=== PATIENT | male | born 1965 | race Caucasian/White ===

== ENCOUNTER 2021-05-19 11:51 | Outpatient (CLI) | payer BC, SELFPAY ==
[2021-05-19 12:38] LABS: Alanine Aminotransferase 19 U/L (4-50); Albumin Level 4.4 g/dL (3.5-5.1); Alkaline Phosphatase 68 U/L (38-126); Anion Gap 5 mmol/L (8-16); Aspartate Amino Transferase 22 U/L (17-59); Bilirubin,Total 0.4 mg/dL (0.2-1.3); Blood Urea Nitrogen 8 mg/dL (9-20); Calcium 8.7 mg/dL (8.4-10.2); Carbon Dioxide 28 mmol/L (22-30); Chloride 98 mmol/L (98-107); Cholesterol 173 mg/dL (0-200); Estimated Glomerular Filt Rate > 60; Glucose 94 mg/dL (65-110); HDL Direct 69 mg/dL; Sodium 131 mmol/L (137-145); Triglycerides 162 mg/dL (<150)
[2021-05-19 12:39] LABS: Rheumatoid Factor < 8.6 IU/ML (<12)
[2021-05-19 12:49] LABS: LDL Cholesterol Direct 85 mg/dL
[2021-05-19 13:07] LABS: Prostate Specific Antigen 0.6 ng/mL (< OR = 4.0)
== END 2021-05-19 11:52 | disposition home or self-care (01) ==
LOC: ANHLAB 11:56
PROVIDERS: PCP Emergency Medicine; Visit Provider Emergency Medicine
DX: Z13.220 Encounter for screening for lipoid disorders (principal); M25.50 Pain in unspecified joint; Z13.6 Encounter for screening for cardiovascular disorders; Z12.5 Encounter for screening for malignant neoplasm of prostate
CPT/HCPCS: 36415; 80053; 80061; 84153; 86430; G0103

== ENCOUNTER 2021-10-11 13:43 | Outpatient (CLI) | payer BC, SELFPAY ==
--- NOTE | ~2021-10-11 | XR_ITS ---
EXAMINATION: XR foot LT standing 2V DATE: 10/11/2021 14:17 INDICATION: Unspecified osteoarthritis, unspecified site. TECHNIQUE: 2 views of left foot standing were obtained. COMPARISON: None. FINDINGS: Bone alignment is normal. No fracture. There is mild osteoarthritis of first and second met atarsophalangeal joints and second proximal and distal interphalangeal joints. There is an enthesophy te at plantar aspect of calcaneal tuberosity. IMPRESSION: 1. Mild polyarticular osteoarthritis. Reviewed, dictated and finalized at location D.
--- NOTE | ~2021-10-11 | XR_ITS ---
EXAMINATION: XR hand BI arthritis min 3V DATE: 10/11/2021 14:17 INDICATION: Unspecified osteoarthritis, unspecified site. TECHNIQUE: 4 views of right hand and 4 views of left hand on a total of 7 radiographs were obtained. COMPARISON: None. FINDINGS: RIGHT HAND: Bone alignment is normal. No fracture. There is degenerative cystic change in proximal shayy leanna. There is mild osteoarthritis of triscaphe joint. There is severe osteoarthritis of first metaca rpophalangeal joint, moderate osteoarthritis of second-fourth metacarpophalangeal joints, and mild os teoarthritis of fifth metacarpophalangeal joint. There is mild osteoarthritis of most of the interpha langeal joints. LEFT HAND: Bone alignment is normal. No fracture. There is mild osteoarthritis of triscaphe joint and first carpometacarpal joint. There is severe osteoarthritis of first metacarpophalangeal joint, mode rate osteoarthritis of second-fourth metacarpophalangeal joints, and mild osteoarthritis of fifth met acarpophalangeal joint. There is an old healed fracture deformity of fifth proximal phalanx. There is mild osteoarthritis of most of the interphalangeal joints. IMPRESSION: 1. Polyarticular osteoarthritis. Reviewed, dictated and finalized at location D.
--- NOTE | ~2021-10-11 | XR_ITS ---
EXAMINATION: XR foot RT standing 2V DATE: 10/11/2021 14:17 INDICATION: Unspecified osteoarthritis, unspecified site. TECHNIQUE: 2 views of right foot standing were obtained. COMPARISON: None. FINDINGS: Bone alignment is normal. No fracture. There is mild osteoarthritis of second metatarsophal angeal joint, third proximal interphalangeal joint, and first interphalangeal joint. There is an enth esophyte at plantar aspect of calcaneal tuberosity. IMPRESSION: 1. Mild polyarticular osteoarthritis. Reviewed, dictated and finalized at location D.
--- NOTE | ~2021-10-11 | XR_ITS ---
EXAMINATION: XR sacroiliac joints min 3V DATE: 10/11/2021 14:17 INDICATION: Unspecified osteoarthritis, unspecified site. TECHNIQUE: 3 views of the sacroiliac joints were obtained. COMPARISON: None. FINDINGS: Bone alignment is normal. No fracture. Right sacroiliac joint is normal. There is mild oste oarthritis of left sacroiliac joint characterized by a tiny osteophyte. No evidence of inflammatory a rthropathy. IMPRESSION: 1. Mild osteoarthritis of left sacroiliac joint. Reviewed, dictated and finalized at location D.
[2021-10-11 15:14] LABS: Hematocrit 40.4 % (42.0-52.0); Hemoglobin 13.7 g/dL (14.0-18.0); Mean Corpuscular HGB Conc 33.9 g/dl (32-36); Mean Corpuscular Hemoglobin 31.1 pg (26-34); Mean Corpuscular Volume 91.8 fl (80-100); Mean Platelet Volume 10.6 fl (7.4-10.4); Platelet Count Result 179 k/mm3 (150-375); Red Cell Distribution Width 12.4 % (11.5-14.5); White Blood Count 8.3 K/mm3 (4.5-10.0)
[2021-10-11 15:31] LABS: Alanine Aminotransferase 22 U/L (4-50); Albumin Level 3.9 g/dL (3.5-5.1); Alkaline Phosphatase 76 U/L (38-126); Anion Gap 4 mmol/L (8-16); Aspartate Amino Transferase 25 U/L (17-59); Bilirubin,Total 0.3 mg/dL (0.2-1.3); Blood Urea Nitrogen 6 mg/dL (9-20); CRP 8.4 mg/dL (<1.0); Calcium 8.5 mg/dL (8.4-10.2); Carbon Dioxide 31 mmol/L (22-30); Chloride 98 mmol/L (98-107); Estimated Glomerular Filt Rate > 60; Glucose 66 mg/dL (65-110); Potassium 3.8 mmol/L (3.4-5.0); Sodium 133 mmol/L (137-145); Uric Acid 4.6 mg/dL (3.5-8.5)
[2021-10-11 15:46] LABS: Erythrocyte Sedimentation Rate 20 mm/hr (0-20)
[2021-10-11 16:47] LABS: Complement C3 106 mg/dL (88-165); Rheumatoid Factor < 8.6 IU/ML (<12)
[2021-10-13 05:42] LABS: Angiotensin Converting Enzyme 8 U/L (9-67)
[2021-10-13 14:49] LABS: SM Antibody <1.0; SM/RNP Antibody <1.0; SS-A <1.0; SS-B <1.0
[2021-10-14 13:13] LABS: Anti Cyclic Citrullinated Pept <16 Units (<20)
== END 2021-10-11 13:44 | disposition home or self-care (01) ==
PROVIDERS: PCP Emergency Medicine; Visit Provider Internal Medicine
DX: M19.071 Primary osteoarthritis, right ankle and foot (principal); M19.072 Primary osteoarthritis, left ankle and foot; M53.3 Sacrococcygeal disorders, not elsewhere classified; M19.041 Primary osteoarthritis, right hand; M19.042 Primary osteoarthritis, left hand
CPT/HCPCS: 36415; 72202; 73130; 73620; 80053; 82164; 84550; 85027; 85652; 86038; 86140; 86160; 86200; 86225; 86235; 86430

== ENCOUNTER 2021-11-25 15:06 | Emergency (ER) | payer BC, SELFPAY ==
--- NOTE | ~2021-11-25 | XR_ITS ---
XR chest 2V DATE: 11/25/2021 15:48 INDICATION: Shortness of breath, leg swelling. Lungs sound wet. TECHNIQUE: PA and lateral views COMPARISON: 06/08/2019 PA chest FINDINGS: The lungs are hyperinflated suggesting COPD. No pulmonary infiltrate or consolidation, pleu ral effusion or pulmonary vascular congestion or pneumothorax is detected. Heart size is within normal range. There is thoracic aortic calcification and tortuosity. No hilar or mediastinal enlargement. Status post anterior cervical spine surgical fusion. Surgical clips, right upper quadrant of abdomen, likely due to cholecystectomy. IMPRESSION: Bilateral hyperinflation suggesting COPD No active cardiac pulmonary disease Aortic atherosclerosis Status post anterior cervical spine surgical fusion Status post cholecystectomy Reviewed, dictated and finalized at location A.
[2021-11-25 15:15] VITALS: BP 139/91; PULSE 85; RESP 18; TEMP 36.8; O2SAT 97
--- NOTE | 2021-11-25 15:44 | ED.GENADULT ---
HPI - General Adult General Chief complaint: Skin/Abscess/Foreign Body Stated complaint: ankles swollen / rash Time Seen by Provider: 11/25/21 15:38 Source: patient Mode of arrival: ambulatory Limitations: no limitations History of Present Illness HPI narrative: 56-year-old male presents concern for bilateral lower extremity swelling and itching. Reports 1 month ago he had white bumps on both of his legs that were itchy. Reports he scratched them causing scabs and open skin. Reports symptoms persisted and within the last week his legs and feet have become swollen and painful He reports he is using dbyi-irp-hlolmsc medications including Tylenol, Neosporin, hydrocortisone. He denies injury or trauma. Denies history of similar problems. MD complaint: Leg swelling Related Data Home Medications Medication Instructions Recorded Confirmed aripiprazole 5 mg tablet tablet 11/25/21 bupropion HCl 300 mg 24 hr tablet, tablet PO 11/25/21 extended release buspirone 10 mg tablet tablet 11/25/21 gabapentin 800 mg tablet tablet 11/25/21 quetiapine 200 mg tablet tablet 11/25/21 vortioxetine 20 mg tablet tablet 11/25/21 (Trintellix) Allergies Allergy/AdvReac Type Severity Reaction Status Date / Time Sulfa (Sulfonamide Allergy Mild UNKNOWN - Verified 11/25/21 15:21 Antibiotics) SINCE CHILD Review of Systems Review of Systems: CONSTITUTIONAL: Denies malaise, chills, sweats, or fever. CARDIOVASCULAR: Denies chest pain, palpitations. Reports bilateral lower leg and feet edema RESPIRATORY: Denies cough. Reports dyspnea. GASTROINTESTINAL: Denies abdominal pain, nausea, vomiting, diarrhea, bloody, or mucous stools. SKIN: Reports bilateral lower leg itching, redness, scabs MUSCULOSKELETAL: Denies back pain, joint pain, or myalgia. All systems reviewed & are unremarkable except as noted in HPI and below PMFSH Past Medical History Medical History Anxiety Back pain Bilateral hand pain Degenerative joint disease (DJD) of lumbar spine Depression Inflammatory arthritis Overweight (BMI 25.0-29.9) Post traumatic stress disorder Smoker Family History Family History Mother Family history of malignant neoplasm of breast in first degree relative Family history of type 2 diabetes mellitus Family history of rheumatoid arthritis Sibling Family history of malignant neoplasm of breast in first degree relative Social History Social History Smoking packs per day: 1 Smoking cigarettes per day: 20.0 Years smoked: 10 Smoking pack-years: 10.00 Smoking status: Current every day smoker Tobacco type: cigarettes Alcohol intake: never Substance use: never Gender identity (if verbalized by the patient): Male Spiritual care concerns: No Agree to blood products: Yes Comments At time of signature, agree with nursing past medical, surgical, social and family history. There is no relevant family history pertinent to the presenting complaint Exam Narrative: GENERAL: Well-appearing, well-nourished, and in no acute distress. HEAD: Normocephalic, atraumatic. EYES: PERRLA, sclera clear, and EOMI. ENT: Nares clear. Mucous membranes moist. NECK: Supple. CHEST: No respiratory distress. Scattered expiratory wheeze and crackles, otherwise clear to auscultation. No bony deformities, no asymmetry. Speaks in full sentences. HEART: Regular rate and rhythm. No murmur heard. Normal peripheral pulses. EXTREMITIES: Grossly normal range of motion, normal strength and sensation. Bilateral lower leg, ankle, foot 1+ pitting edema. Bilateral lower legs erythematous and warm, tender to touch. Bilateral lower legs have generalized scabs, areas of open skin. No ulcerations noted SKIN: Warm, dry, no visible rash. NEURO: Alert and oriented x3. PSYCH: Normal mood and affect Course Course Emergency Course: Patient is aw
== END 2021-11-25 16:03 | disposition home or self-care (01) ==
PROVIDERS: Emergency Provider Nurse Practitioner; PCP Emergency Medicine
DX: L03.116 Cellulitis of left lower limb (principal); L03.115 Cellulitis of right lower limb; J44.9 Chronic obstructive pulmonary disease, unspecified; F17.210 Nicotine dependence, cigarettes, uncomplicated; F41.9 Anxiety disorder, unspecified; F32.A Depression, unspecified; M13.80 Other specified arthritis, unspecified site; M47.816 Spondylosis without myelopathy or radiculopathy, lumbar region
CPT/HCPCS: 71046; 99213; G0463

== ENCOUNTER 2021-12-16 19:01 | Emergency (ER) | payer BC, SELFPAY ==
[2021-12-16 19:06] VITALS: BP 136/89; PULSE 88; RESP 16; TEMP 37.7; O2SAT 95
--- NOTE | 2021-12-16 19:12 | ED.SKABFB ---
HPI - Skin/Abscess/Foreign Bdy General Chief complaint: Extremity Problem,Nontraumatic Stated complaint: Leg/Hand Swelling Time Seen by Provider: 12/16/21 19:12 Source: patient and RN notes reviewed History of Present Illness HPI narrative: Patient is a 56-year-old male who presents the urgent care with complaints of bilateral lower extremity swelling. Patient states been ongoing for the last 2 months but worse within the last week or so. Patient states that the compression stockings he wears in the evenings and at home do help with the swelling however it has been returning much quicker than normal. Patient states that his physician is aware of the swelling but he has not been there in some months. Patient is also aware of his recent lab work from the global risk management director and everything was negative for RA. Patient denies of any shortness of breath or chest pain. States that he is urinating without difficulty. Denies of any trauma or injury to the bilateral lower extremities. No other acute complaints. No acute distress noted. Patient aware of the plan of care. Some parts of this dictation were generated by voice recognition software and may contain typographical and/or grammatical inaccuracies. Related Data Home Medications Medication Instructions Recorded Confirmed aripiprazole 5 mg tablet tablet 11/25/21 buspirone 10 mg tablet tablet 11/25/21 vortioxetine 20 mg tablet tablet 11/25/21 (Trintellix) bupropion HCl 150 mg 24 hr tablet, 150 mg PO QAM 11/29/21 extended release sildenafil 50 mg tablet 50 mg PO DAILY PRN 11/29/21 Allergies Allergy/AdvReac Type Severity Reaction Status Date / Time Sulfa (Sulfonamide Allergy Mild UNKNOWN - Verified 11/25/21 15:21 Antibiotics) SINCE CHILD Review of Systems Review of Systems: CONSTITUTIONAL: Denies fever, chills, or sweats. EYES: Denies visual changes, redness, or discharge. ENT: Denies rhinorrhea, congestion, sore throat, or otalgia. CARDIOVASCULAR: Denies chest pain, palpitations, or edema. RESPIRATORY: Denies cough or dyspnea. GASTROINTESTINAL: Denies abdominal pain, nausea, vomiting, or diarrhea. GENITOURINARY: Denies dysuria or hematuria. SKIN: Denies rash or itching. MUSCULOSKELETAL: Reports of bilateral lower extremity swelling NEUROLOGIC: Denies headache, numbness, or weakness. All other systems reviewed are negative, except as documented in HPI. [facility] Past Medical History Medical History Anxiety Back pain Bilateral hand pain Degenerative joint disease (DJD) of lumbar spine Depression Inflammatory arthritis Overweight (BMI 25.0-29.9) Post traumatic stress disorder Smoker Family History Family History Mother Family history of malignant neoplasm of breast in first degree relative Family history of type 2 diabetes mellitus Family history of rheumatoid arthritis Sibling Family history of malignant neoplasm of breast in first degree relative Social History Social History Smoking packs per day: 1 Smoking cigarettes per day: 20.0 Years smoked: 10 Smoking pack-years: 10.00 Smoking status: Current every day smoker Tobacco type: cigarettes Alcohol intake: never Substance use: never Gender identity (if verbalized by the patient): Male Spiritual care concerns: No Agree to blood products: Yes Comments At the time of my signature, I reviewed and agree with the nursing past medical, surgical, social, and family history. There is no relevant family history pertinent to the patient complaint. Exam Narrative: GENERAL: This is a well-nourished, well-developed patient, in no apparent distress. HEAD: normocephalic, atraumatic. EYES: PERRL. Sclera clear/white. Vision is grossly intact. EARS: External ears normal NOSE: External nose normal with no obvious nasal discharge, nares without redness, no rhinorrhea. THROAT: Mucous mem
== END 2021-12-16 19:28 | disposition left against medical advice (07) ==
PROVIDERS: Emergency Provider Nurse Practitioner Family
DX: R60.9 Edema, unspecified (principal); F41.9 Anxiety disorder, unspecified; F32.9 Major depressive disorder, single episode, unspecified; F17.210 Nicotine dependence, cigarettes, uncomplicated
CPT/HCPCS: 99213; G0463

== ENCOUNTER 2022-01-11 14:43 | Outpatient (CLI) | payer BC, SELFPAY ==
--- NOTE | ~2022-01-11 | MR_ITS ---
EXAMINATION: MR hand RT wo/w con, MR hand LT wo/w con DATE: 01/11/2022 17:55 INDICATION: Bilateral hand pain TECHNIQUE: 1. Magnetic resonance imaging (MRI) of the left hand was performed without and with 15 mL Multihance intravenous contrast to include the metacarpals and digits. Sequences included sagittal, coronal, and axial T1-weighted FSE and T2-weighted FS FSE, axial T1-weighted FS FSE and postcontrast axial, sagit ayo and coronal T1-weighted FS FSE. 2. MRI of the right hand was performed without and with 15 mL MultiHance intravenous contrast to incl ude the metacarpals and digits utilizing the same contrast bolus. Sequences included sagittal, charles l, and axial T1-weighted FSE and T2-weighted FS FSE, axial T1-weighted FS FSE and postcontrast axial, sagittal and coronal T1-weighted FS FSE. COMPARISON: Bilateral hand radiographs dated 10/11/2021 FINDINGS: There is magnetic medina artifact centered at the ulnar aspect of the right wrist which based on prio r radiographs appears to result from a BB the soft tissues overlying the region of the extensor carpi ulnaris groove. This obscures the ulnar aspect of the proximal right hand. Bone alignment is normal at both hands. No fractures. Polyarticular osteoarthritis of both hands characters by nonuniform join t space narrowing and marginal osteophyte formation. This is severe bilaterally at the first metacarp ophalangeal joints is of moderate severity at the bilateral second-fourth metacarpophalangeal joints. Additional mild osteoarthritis at the radial aspect of the carpus, the bilateral fifth metacarpophal angeal joints and multiple interphalangeal joints. There is enhancing synovitis with associated enhan cing erosions to some degree at each of the metacarpophalangeal joints. At the left hand there is enh ancing synovitis at the triscaphe and first and second carpometacarpal joints. There is mild enhancem ent along the periphery of either degenerative subchondral cysts versus chronic erosions with thin lo w signal intensity sclerotic margins of at the base of the second metacarpal and at the capitate. Sim ilar degenerative subchondral cyst versus erosion suggested at the right capitate on the prior radiog raph but this region is nonvisualized on the current MRI due to the magnetic field artifact. Visualiz ed portions of the flexor and extensor tendons are normal as is the intrinsic musculature of the hand s. No joint effusions or other abnormal fluid collections. IMPRESSION: 1. Relatively symmetric moderate to severe polyarticular osteoarthritis at the bilateral metacarpopha langeal joints with associated synovitis and multiple associated enhancing erosions suggesting this c ould represent secondary osteoarthritis with underlying primary inflammatory arthritis such as rheuma toid arthritis, gout or calcium pyrophosphate deposition (CPPD) disease. Reviewed, dictated and finalized at location A. IMPRESSION: 1. Relatively symmetric moderate to severe polyarticular osteoarthritis at the bilateral metacarpophalangeal joints with associated synovitis and multiple ass ociated enhancing erosions suggesting this could represent secondary osteoarthr itis with underlying primary inflammatory arthritis such as rheumatoid arthriti s, gout or calcium pyrophosphate deposition (CPPD) disease.
--- NOTE | 2022-01-11 14:47 | ECHO_ITS ---
Patient Info Name: Christopher Bills Age: 56 years : 1965 Gender: Male Ht: 72 in Wt: 175 lbs BSA: 2.01 m2 HR: 67 bpm BP: 162 / 110 mmHg Heart Rhythm: Sinus Rhythm Technical Quality: Fair Exam Date: 01/11/2022 3:01 PM Exam Location: [facility] Patient Status: Outpatient Admit Date: 01/11/2022 Staff Ordering Physician: Karan Lyons PA-C Visual Journalist: Lesly Way RDCS Attending Provider: Karan Lyons PA-C Referring Physician: Serena RIVERA; Exam Type: CA echo doppler color flow Study Info Indications - B/L LE EDEMA Complete two-dimensional, color flow and Doppler transthoracic echocardiogram is performed. Summary 1. Complete two-dimensional, color flow and Doppler transthoracic echocardiogram is performed. 2. Left ventricular chamber dimension is normal. 3. Left ventricular systolic function is normal, estimated at 60-65%. 4. The left ventricular diastolic function is abnormal. 5. E/e' 12 is mildly elevated. 6. There is trace tricuspid valve regurgitation. 7. No pulmonary hypertension, estimated pulmonary arterial systolic pressure is 21 mmHg. Left Ventricle E/e' 12 is mildly elevated. Left ventricular chamber dimension is normal. Left ventricular systolic function is normal, estimated at 60-65%. The left ventricular diastolic function is abnormal. Right Ventricle Right ventricular systolic function is normal and with normal TAPSE 2.4 cm. Right ventricular chamber dimension is normal. Left Atria Left atrial chamber dimension is normal. Right Atria Right atrial chamber dimension is normal. Aortic Valve The aortic valve is trileaflet. There is no aortic valve stenosis. There is no aortic valve regurgitation. Pulmonic Valve There is no pulmonic regurgitation. Mitral Valve There is no mitral valve stenosis. There is no mitral valve regurgitation. Tricuspid Valve There is trace tricuspid valve regurgitation. No pulmonary hypertension, estimated pulmonary arterial systolic pressure is 21 mmHg. Pericardium/Pleural There is no pericardial effusion. Inferior Vena Cava Normal inferior vena cava with >50% collapse upon inspiration consistent with normal right atrial pressure, 5 mmHg. Aorta The aortic root size at the sinus of Valsalva is normal. Left Ventricular Outflow Tract Name Value Normal LVOT 2D LVOT Diameter 2.2 cm LVOT Doppler LVOT Peak Gradient 4 mmHg LVOT Mean Gradient 2 mmHg LVOT VTI 20 cm LVOT VTI/AV VTI Ratio 0.7 LVOT Stroke Volume 79 ml LVOT CO 4.9 l/min LVOT CI 2.4 l/min/m2 Pulmonic Valve Name Value Normal RVOT Doppler RVOT Peak Gradient 1 mmHg
== END 2022-01-11 14:44 | disposition home or self-care (01) ==
LOC: ANHCARD 14:45
PROVIDERS: PCP Physician Assistant; Visit Provider Physician Assistant
DX: R60.0 Localized edema (principal); M19.90 Unspecified osteoarthritis, unspecified site; M19.041 Primary osteoarthritis, right hand; M19.042 Primary osteoarthritis, left hand
CPT/HCPCS: 73220; 93306; A9577

== ENCOUNTER 2022-04-14 13:55 | Emergency (ER) | payer BC, SELFPAY ==
--- NOTE | ~2022-04-14 | XR_ITS ---
EXAMINATION: XR chest 2V DATE: 04/14/2022 14:42 INDICATION: Shortness of breath. Fever. TECHNIQUE: Frontal and lateral views of the chest were obtained. COMPARISON: Chest 2 views 11/25/2021 FINDINGS: The chest demonstrates clear lungs without pneumonia, pleural effusion, or pneumothorax. Th e heart size is normal. There are changes of anterior fusion procedure in cervical spine. IMPRESSION: 1. No acute cardiopulmonary disease. Reviewed, dictated and finalized at location A.
[2022-04-14 14:03] VITALS: BP 136/82; PULSE 86; RESP 12; TEMP 37.4; O2SAT 95
--- NOTE | 2022-04-14 14:29 | ED.URI ---
HPI - URI/Sore Throat General Chief Complaint: Upper Respiratory Infection Stated Complaint: Cough/Chest Congestion Time Seen by Provider: 04/14/22 14:29 Source: patient and RN notes reviewed Mode of arrival: ambulatory Limitations: no limitations History of Present Illness HPI Narrative: 56-year-old male presents concern with 3 history of general malaise, fatigue, aches, fever, cough. He reports he has been told before he has COPD but he does not use any medications. Reports he is smoker. MD elicited complaint: cough and sore throat Related Data Home Medications Medication Instructions Recorded Confirmed aripiprazole 5 mg tablet 5 tablet PO QPM 11/25/21 04/14/22 Allergies Allergy/AdvReac Type Severity Reaction Status Date / Time Sulfa (Sulfonamide Allergy Mild UNKNOWN - Verified 04/14/22 14:12 Antibiotics) SINCE CHILD Review of Systems Review of Systems: CONSTITUTIONAL: Reports malaise, fatigue, fever. EYES: Denies visual changes, redness, or discharge. ENT: Denies rhinorrhea, congestion, sinus pain, otalgia and sore throat. CARDIOVASCULAR: Denies chest pain, palpitations, or edema. RESPIRATORY: Reports cough. Denies dyspnea. GASTROINTESTINAL: Denies abdominal pain, nausea, vomiting, diarrhea SKIN: Denies rash or itching. MUSCULOSKELETAL: Reports myalgia. NEUROLOGIC: Reports headache. All systems reviewed & are unremarkable except as noted in HPI and below PMFSH Past Medical History Medical History Anxiety Back pain Bilateral hand pain Degenerative joint disease (DJD) of lumbar spine Depression Inflammatory arthritis Overweight (BMI 25.0-29.9) Post traumatic stress disorder Smoker Family History Family History Mother Family history of malignant neoplasm of breast in first degree relative Family history of type 2 diabetes mellitus Family history of rheumatoid arthritis Sibling Family history of malignant neoplasm of breast in first degree relative Social History Social History Smoking packs per day: 1 Smoking cigarettes per day: 20.0 Years smoked: 10 Smoking pack-years: 10.00 Smoking status: Current every day smoker Tobacco type: cigarettes Alcohol intake: never Substance use: never Gender identity (if verbalized by the patient): Male Spiritual care concerns: No Agree to blood products: Yes Comments At time of signature, agree with nursing past medical, surgical, social and family history. There is no relevant family history pertinent to the presenting complaint Exam Narrative: GENERAL: Nontoxic-appearing and in no acute distress. HEAD: Normocephalic EYES: PERRLA, conjunctivae clear ENT: Nares clear, clear discharge. Mucous membranes moist. TM pearly rich with dull light reflex bilaterally; no tragal tenderness. Oropharynx not erythematous without lesions. Tonsils not enlarged and without exudate, no drooling, no hoarseness, no trismus, uvula midline. NECK: Supple. No lymphadenopathy CHEST: Inspiratory and expiratory wheeze, aeration good, scattered rhonchi particularly in right lower lobe. Breath sounds equal. No rales, or stridor. No respiratory distress, speaks in full sentences. HEART: Regular rate and rhythm. No murmur heard. SKIN: Warm, dry, no rash. NEURO: Alert and oriented x3. PSYCH: Normal mood and affect Course Course Emergency Course: Patient is aware of diagnosis, understands and agrees to treatment plan. Anticipatory guidance given. Patient agrees to follow-up as directed and is aware of reasons to seek care at the emergency department. Portions of this record may have been created with voice recognition software Level of Care: Express Care Visit Vital Signs Vital signs: Vital Signs Temperature 99.3 F 04/14/22 14:03 Pulse Rate 86 04/14/22 14:03 Respiratory Rate 12 04/14/22 14:03 Blood Pressure 136/82 04/14/22 14:03
== END 2022-04-14 15:08 | disposition home or self-care (01) ==
PROVIDERS: Emergency Provider Nurse Practitioner; PCP Emergency Medicine
DX: J11.1 Influenza due to unidentified influenza virus with other respiratory manifestations (principal); Z20.822 Contact with and (suspected) exposure to COVID-19; M47.816 Spondylosis without myelopathy or radiculopathy, lumbar region; M13.80 Other specified arthritis, unspecified site; J44.9 Chronic obstructive pulmonary disease, unspecified
CPT/HCPCS: 71046; 87426; 87804; 99213; C9803; G0463

== ENCOUNTER 2022-09-20 11:46 | Outpatient (CLI) | payer BC, SELFPAY ==
[2022-09-20 12:10] LABS: Alanine Aminotransferase 28 U/L (6-50); Albumin Level 4.5 g/dL (3.5-5.1); Alkaline Phosphatase 76 U/L (38-126); Anion Gap 6 mmol/L (8-16); Aspartate Amino Transferase 23 U/L (17-59); Bilirubin,Total 0.6 mg/dL (0.2-1.3); Blood Urea Nitrogen 10 mg/dL (9-20); Calcium 8.2 mg/dL (8.4-10.2); Carbon Dioxide 28 mmol/L (22-30); Chloride 99 mmol/L (98-107); Cholesterol 184 mg/dL (0-200); Estimated Glomerular Filt Rate > 60; Glucose 99 mg/dL (65-110); HDL Direct 68 mg/dL; Potassium 4.7 mmol/L (3.4-5.0); Sodium 133 mmol/L (137-145); Triglycerides 58 mg/dL (<150)
[2022-09-20 12:23] LABS: LDL Cholesterol Direct 94 mg/dL
[2022-09-20 12:41] LABS: Prostate Specific Antigen 0.4 ng/mL (< OR = 4.0)
[2022-09-23 23:57] LABS: Vitamin D 1,25 (OH)2 Total 43 pg/mL (18-72); Vitamin D2 1,25 (OH)2 9 pg/mL; Vitamin D3 1,25 (OH)2 34 pg/mL
== END 2022-09-20 11:47 | disposition home or self-care (01) ==
LOC: ANHLAB 11:48
PROVIDERS: PCP Emergency Medicine; Visit Provider Emergency Medicine
DX: E55.9 Vitamin D deficiency, unspecified (principal); E78.00 Pure hypercholesterolemia, unspecified; Z12.5 Encounter for screening for malignant neoplasm of prostate; R53.83 Other fatigue
CPT/HCPCS: 36415; 80053; 80061; 82652; 84153; 84443; G0103

== ENCOUNTER 2024-02-16 13:15 | Emergency (ER) | payer BC, SELFPAY ==
[2024-02-16 13:27] VITALS: BP 154/96; PULSE 76; RESP 16; TEMP 36.6; O2SAT 96
--- NOTE | 2024-02-16 19:40 | PC.NURSE ---
No answer when called for VS. Was told that midlevel provider, FADY Bah was unable to find patient earlier for MSE. Assume at this time pt LWBS and will chart out.
== END 2024-02-16 19:57 | disposition left against medical advice (07) ==
LOC: ANHED 19:46
PROVIDERS: PCP Emergency Medicine
DX: Z53.21 Procedure and treatment not carried out due to patient leaving prior to being seen by health care provider (principal)
CPT/HCPCS: 99199

== ENCOUNTER 2024-10-23 14:03 | Outpatient (CLI) | payer BC, SELFPAY ==
--- NOTE | ~2024-10-23 | XR_ITS ---
XR abdomen/kub 1V Ordering provider: JESSIKA Montalvo History: . R10.9 - Unspecified abdominal pain . Comparison: None. FINDINGS: BOWEL: Nonobstructive bowel gas pattern. ORGANOMEGALY: None. SIGNIFICANT PATHOLOGIC CALCIFICATIONS: None. OTHER: No free air is seen under the diaphragm. Degenerative the spine. IMPRESSION: NO ACUTE ABDOMINAL FINDINGS. Reviewed, dictated and finalized at location A.
--- OUTSIDE RECORDS SUMMARY | 2024-10-23 14:16 | XMS_ITS | Referral Summary ---
Author Organization [facility] Address [address] [place] [address] Care Team Providers Care Dispatcher Relay Name Role Phone Erick Garcia MD Primary Care Provide r Allergies Active Allergy Reactions Criticality Noted Date Comments Sulfasalazine Anaphylaxis High 05/27/2015 Medications No known medications Active Problems Problem Noted Date Diagnosed Date Opioid withdrawal 03/02/2018 Social History Tobacco Use Types Packs/Day Years Used Date Smoking Tobacco: Every Day Cigarettes Smokeless Tobacco: Never Alcohol Use Standard Drinks/Week Comments No 0 (1 standard drink = 0.6 oz pur e alcohol) Personal Safety Answer Date Recorded Getting School Help Needed Not on file 08/05 Sex and Gender Information Value Date Recorded Sex Assigned at Not on file Legal Sex Male 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 Gender Identity Not on file Sexual Orientation Not on file Last Filed Vital Signs Vital Sign Reading Time Taken Comments Blood Pressure 147/89 01/05/2021 2:00 PM CDT Pulse 77 01/05/2021 2:00 PM CDT Temperature 37.3 C (99.1 F) 01/05/2021 10:46 AM CDT Respiratory Rate 14 01/05/2021 2:00 PM CDT Oxygen Saturation 97% 01/05/2021 2:00 PM CDT Inhaled Oxygen Concentration - - Weight 79.4 kg (175 lb) 01/05/2021 10:46 AM CDT Height 180.3 cm (5' 11 ) 01/05/2021 10:46 AM CDT Body Mass Index 24.41 01/05/2021 10:46 AM CDT Plan of Treatment Not on file Insurance BLUE [facility] [place] BLUE [facility] CHOICE [facility] ACCESS CHOICE Advance Directives For more information, please contact: [phone] * Full Code (Latest Code Status on File) Date Activated Date Inactivated Comments 03/02/2018 11:45 AM 03/05/2018 11:50 AM Care Teams Dispatcher Relay Relationship Specialty Start Date End Date Erick Garcia MD [id number] [place] [address] PCP - General 03/02/18
--- OUTSIDE RECORDS SUMMARY | 2024-10-23 14:16 | XMS_ITS | Clinical Summary ---
Author Organization [facility] Address [address] [address] Phone Care Team Providers Care Toll Operator Name Role Phone Erick Garcia MD Primary Care Provider [phone] Allergies Active Allergy Reactions Criticality Noted Date Comments Sulfa Antibiotics Anaphylaxis 05/27/2015 Medications esomeprazole (NEXIUM) 20 MG CAPSULE DELAYED RELEASE Take 20 mg by mouth daily. Active amitriptyline (ELAVIL) 10 MG Tablet Take 10 mg by mouth daily. 2 6 Active NUVIGIL 150 MG Tablet Take 150 mg by mouth daily. 2 6 Active VRAYLAR 3 MG Capsule Take 3 mg by mouth daily. 2 6 Active DULoxetine (CYMBALTA) [address] Particles Take 60 mg by mouth daily. 2 6 Active hydrOXYzine (VISTARIL) 50 MG Capsule Take 50 mg by mouth daily. 2 6 Active predniSONE (DELTASONE) 20 MG Tablet Take 40 mg by mouth daily. 0 6 Active Topiramate 50 MG Tablet TK 1 T PO BID 2 6 Active GABAPENTIN PO Take 800 mg by mouth in the morning and at bedtime. Active Venlafaxine HCl (EFFEXOR PO) Take by mouth. Active buPROPion SR (Wellbutrin SR) 150 MG TABLET SR 12 HR Take 150 mg by mouth daily. Active omeprazole (PriLOSEC) 20 MG CAPSULE DELAYED RELEASE Take 20 mg by mouth Daily as needed. Active Vilazodone HCl (Viibryd) 40 MG Tablet Take 40 mg by mouth daily. Active QUEtiapine Fumarate (SEROquel) 50 MG Tablet Take 50 mg by mouth nightly as needed. Active melatonin 3 MG Tablet Take 10 mg by mouth nightly. Active HYDROcodone-aceta minophen (NORCO) 5-325 MG TabletIndications :Closed nondisplaced fracture of left clavicle, unspecified part of clavicle, initial encounter Take 1-2 Tablets by mouth every 4 hours as needed for Moderate or more severe pain. 20 Tablet Active Active Problems Problem Noted Date Diagnosed Date Closed displaced fracture of shaft of left clavi danyelle 04/03/2024 Neck pain 04/08/2016 Chronic midline low back pain without sciatica 0 11/26/2015 Major depressive disorder, recurrent, moderate Anxiety Opiate addiction Immunizations Immunization Administration Dates Next Due Influenza Vaccine 03/28/2012 Family History Medical History Relation Name Comments Heart Disease Father Other-comment Father substance use disorder Breast Cancer Mother Diabetes Mother Osteoarthritis Mother Relation Name Status Comments Father Mother Alive Social History Tobacco Use Types Packs/Day Years Used Date Smoking Tobacco: Every Day Cigarettes Smokeless Tobacco: Never Tobacco Cessation:Ready to Q uit: Not Asked; Counseling Given: Not Answered Alcohol Use Standard Drinks/Week Comments Not Currently 0 (1 standard drink = 0.6 oz pur e alcohol) last drink 2018 PHQ-2 Answer Date Recorded Total Score - Questions 1-9 17 02/10 Education Answer Date Recorded What is the highest level of school you have completed or the highest degree you have received? High school graduate 02/26/2020 Sexually Active Control Partners Comments Yes Female Sex and Gender Information Value Date Recorded Sex Assigned at Not on file Legal Sex Male 10:28 PM CDT Gender Identity Not on file Sexual Orientation Not on file Last Filed Vital Signs Vital Sign Reading Time Taken Comments Blood Pressure 134/90 04/03/2024 4:08 PM CDT Pulse 87 04/03/2024 4:08 PM CDT Temperature 36.5 C (97.7 F) 04/03/2024 4:08 PM CDT Respiratory Rate 18 04/03/2024 4:08 PM CDT Oxygen Saturation 89% 04/03/2024 4:0 8 PM CDT rn aware at bedside Inhaled Oxygen Concentration - - Weight 79.4 kg (175 lb 1.6 oz) 04/03/2024 11:00 AM CDT Height 180.3 cm (5' 11 ) 04/03/2024 11: 00 AM CDT Body Mass Index 24.42 04/03/2024 11:00 AM CDT Plan of Treatment Health Maintenance Due Date Last Done Comments Hepatitis C Virus (HCV) Screening 1966 TdaP Immunization 1966 Hepatitis B Immunization (1 of 3 - 19+ 3-dose series) 1985 Pneumococcal Immunization (5 0+ years) (1 of 2 - PCV) 1985 Colonoscopy 2011 Colorectal Cancer Screening 2011 Cologuard 2016 Immunochemical Fecal Occult Blood 2016 Zoster Immunization (1 of 2) 2016 Influenza Immunization (#1) 2024 03/28/2012 SARS-COV-2 Immunization (2 - season) 2024 01/22/2021 Respiratory Syncytial Virus (RSV) Immunization (Adult) (1 - 1-dose 75+ series) 2041 PSA Discussion Completed 02/28/2024, 08/12/2020, 05/01/2018 Meningococcal Immunization (ACWY) Aged Out No longer eligible b ased on patient's age to complete this topic Rotavirus Immunization Aged Out No lo nger eligible based on patient's age to complete this topic Goals Goal Patient Goal Type Associated Problems Recent Progress Patient-Stated? Author Behavioral Health Behavioral Health Yes Betsey Lewis [facility] Note: Christopher reported overtime I would like to get some goals set in my life . Goal Reviewed with: patient Readiness to change: Thinking about making a change Department associated with goal: [facility] Steps to achieve goal: Christopher will follow up with referral, calling [facility] to schedule an intake appointment with a clinician to obtain individual counseling for co-occurring concerns (substance use and depression. Christopher will meet with provider for intake. Medical Devices Implanted Type Area A Class Lineman Device Identifier Shelf Expiration Date Model / Serial / Lot Screw Locking T10 Full Thread 3.5mm/14mm - [id number] Implanted:Qty : 1 on 04/03/2024 by Italo Kiran MD at [facility] IMPLANT Left: Clavicle [employer] [id number] / [id number] / [id number] Screw Locking T10 Full Thread 3.5mm/16mm - [id number] Implanted:Qty : 2 on 04/03/2024 by Italo Kiran MD at [facility] IMPLANT Left: Clavicle [employer] [id number] / [id number] / [id number] Screw Locking T10 Full Thread 3.5mm/12mm - [id number] Implanted:Qty : 1 on 04/03/2024 by Italo Kiran MD at [facility] IMPLANT Left: Clavicle [employer] [id number] / [id number] / [id number] Screw Bone T10 Full Thread 3.5mm/16mm - [id number] Implanted:Qty : 4 on 04/03/2024 by Italo Kiran MD at [facility] IMPLANT Left: Clavicle [employer] [id number] / [id number] / [id number] Screw Bone T10 Full Thread 3.5mm/18mm - [id number] Implanted:Qty : 1 on 04/03/2024 by Italo Kiran MD at [facility] IMPLANT Left: Clavicle [employer] [id number] / [id number] / [id number] Elmer Clavicle Superior 8 Hole Plate-Left Implanted:Qty : 1 on 04/03/2024 by Italo Kiran MD at [facility] Left: Clavicle JABIER / TRAUMA [id number] / [id number] / [id number] Procedures Procedure Name Priority Date/Time Associated Diagnosis Comments PSA SCREEN Routine 02/28/2024 2:49 PM CDT Hyperlipidemia, unspecified hyperlipidemia type Vitamin D deficiency Encounter for screening for malignant neoplasm of prostate from Last 3 Months or Most Recently Relevant to Health Maintenance Results * PSA SCREEN (02/28/2024 2:49 PM CDT) PSA SCREEN, TOTAL 0.28 <4.00 ng/mL 02/28/2024 4:37 PM CDT [facility] Blood Venipuncture / Unknown 02/28/2024 2:49 PM CDT 02/28/2024 3:46 PM CDT Narrative [facility] - 02/28/2024 4:37 PM CDT The ALINITY Total PSA assay is a Chemiluminescent Microparticle Immunoassay (CMIA) for the quantitative determination of total PSA (both free PSA and PSA complexed to [id number]) in human serum. Total PSA values obtained with different assay methods, including [place] PSA assays, cannot be used interchangeably. us Erick Garcia MD CHEMISTRY ORDERABLES Final Res ult [facility] [address] [place] [address] from Last 3 Months or Most Recently Relevant to Health Maintenance Insurance Advance Directives * Full Code (Latest Code Status on File) Date Activated Date Inactivated Comments 03/16/2024 1:17 AM 03/16/2024 1:17 AM CPR-Full Mariusz atment: FULL ARREST: Attempt Resuscitation/CPR wit intubation and mechanical ventilation. PRE-ARREST: Use entire range of life support measures to stabilize the patient. Care Teams Toll Operator Relationship Specialty Start Date End Date Erick Garcia MD [address] [facility] [address] [place] [address] PCP - General Internal Medicine 01/13/17
--- OUTSIDE RECORDS SUMMARY | 2024-10-23 14:16 | XMS_ITS | Clinical Summary ---
Author Organization [facility] Address [address] [place] [address] Care Team Providers Care Residential Concierge Name Role Phone Erick Garcia MD Primary Care Provide r Allergies Active Allergy Reactions Criticality Noted Date Comments Sulfasalazine Anaphylaxis High 05/27/2015 Medications No known medications Active Problems Problem Noted Date Diagnosed Date Opioid withdrawal 03/02/2018 Surgical History Surgery Date Site/Laterality Comments BICEPS TENDON REPAIR CERVICAL DISCECTOMY Medical History Medical History Date Comments Depression Substance abuse (HCC) 2011 Social History Tobacco Use Types Packs/Day Years [...] on file Legal Sex Male 11:49 AM CONSTRUCTION RECRUITER Gender Identity Not on file Sexual Orientation Not on file Obstetrics History Last Filed Vital Signs Vital Sign Reading [...] 01/05/2021 10:46 AM CDT Plan of Treatment Health Maintenance Due Date Last Done Comments Colon Cancer Screening-Colonoscopy 1966 Depression Screening 1966 Hepatitis C Screening 1966 Prostate Cancer Screening-PSA 1966 DTaP/Tdap/Td Vaccine (1 - Tdap) 1977 Hepatitis B Screening 1984 Regular Well Visit/Exam 18-64 1984 Pneumococcal vaccine <65 (1 of 2 - PCV) 1985 Zoster Vaccine (1 of 2) 2016 Covid-19 Vaccine (2 - season) 2024 Influenza Vaccine (Season Ended) 2025 03/28/20 12 Insurance [facility] Member Subscriber Plan / Payer (Ef fective 2021-Present) Name:Justo Bills Relation to Subscriber:Self Name:Justo Bills Payer ID:[id number] (NAIC) Type: ALLIANCE Address: [address] [place] [id number] [facility] ACCESS CHOICE Member Subscriber Plan / Payer (Ef fective 2022-Present) Name:Justo Bills Member ID:[id number] Relation to Subscriber:Self Name:Justo Bills Subscriber ID:[id number] Payer ID:[id number] (NAIC) Type:BC ALLIANCE Address: [address] [place] [address] Advance Directives For more information, please contact: [phone] * Full Code (Latest Code Status on File) Date Activated Date Inactivated Comments 03/02/2018 11:45 AM 03/05/2018 11:50 AM Care Teams Residential Concierge Relationship Specialty Start Date End Date Erick Garcia MD [address] [place] [address] PCP - General 03/02/18
--- OUTSIDE RECORDS SUMMARY | 2024-10-23 14:16 | XMS_ITS | Clinical Summary ---
Author Organization [email or web address] Address [address] [place] [address] Care Team Providers Care Advanced Practice Psychiatric Nurse Name Role Phone Erick Garcia MD Primary Care Provider [phone] Allergies Active Allergy Reactions Criticality Noted Date Comments Sulfa (Sulfonamide Antibiotics) Unknown 04/12 Medications Cholecalciferol, Vitamin D3, 2,000 unit Capsule Take by mouth 2 times daily. Active diazePAM (VALIUM) 5 mg tablet Take 0.5-1 Tablet (2.5-5 mg) by mouth every 8 hours as needed for Spasm or Discomfort. 60 Tablet 0 04/26/2016 Active oxyCODONE (ROXICODONE) 5 mg tablet Take 1-2 Tablet (5-10 mg) by mouth every 4 hours as needed for Pain. Max Daily Amount: 60 mg 90 Tablet 0 04/26/2016 Active Active Problems Problem Noted Date Diagnosed Date Cervical spondylosis 04/25/2016 Social History Tobacco Use Types Packs/Day Years Used Date Smoking Tobacco: Every Day Cigarettes 1 25 Smokeless Tobacco: Never Alcohol Use Standard Drinks/Week Comments Yes 0 (1 standard drink = 0.6 oz pur e alcohol) SELDOM Sex and Gender Information Value Date Recorded Sex Assigned at Not on file Legal Sex Male 11:33 AM CDT Gender Identity Not on file Sexual Orientation Not on file Last Filed Vital Signs Vital Sign Reading Time Taken Comments Blood Pressure 149/83 04/26/2016 8:23 AM CASUALTY UNDERWRITER Pulse 71 04/26/2016 8:23 AM CASUALTY UNDERWRITER Temperature 36.4 C (97.5 F) 04/26/2016 8:23 AM CASUALTY UNDERWRITER Respiratory Rate 16 04/26/2016 8:23 AM CASUALTY UNDERWRITER Oxygen Saturation 100% 04/26/2016 8:23 AM CASUALTY UNDERWRITER Inhaled Oxygen Concentration - - Weight 91 kg (200 lb 9.6 oz) 04/25/2016 11:44 AM CASUALTY UNDERWRITER Height 182.9 cm (6') 04/22/2016 11:13 AM CASUALTY UNDERWRITER Body Mass Index 27.21 04/22/2016 11:13 AM CASUALTY UNDERWRITER Plan of Treatment Health Maintenance Due Date Last Done Comments DTAP/TDAP/TD VACCINES (1 - Tdap) 1985 HEPATITIS B VACCINES (1 of 3 - 19+ 3-dose series) 07/14 COLORECTAL SCREENING 2011 Colorectal Cancer Screening 2011 FIT-DNA Q 3 years 2011 FIT/FOBT Q 1 year 2011 Flex Sig/CT Colonography Q 5 years 2011 ZOSTER VACCINE (1 of 2) 2016 INFLUENZA VACCINE (#1) 2024 03/28/2012 Medical Devices Implanted Type Area Elevator Technician Device Identifier Shelf Expiration Date Model / Serial / Lot Spacer Bio Avs C-Plg 6mm 4d [id number] - [id number] Implanted:Qty : 1 on 04/25/2016 by Jeimy Cruz MD at [facility] Biological N/A: Spine Cervical Anterior GILL- SPINE 05/26/2020 [id number] / [id number] / Spacer Bio Avs C-Plg 7mm 4d [id number] - [id number] Implanted:Qty : 1 on 04/25/2016 by Jeimy Cruz MD at [facility] Biological N/A: Spine Cervical Anterior GILL- SPINE 10/07/2020 [id number] / [id number] / Description:all [place] cerv ical bone and spinal hardware was processed on requisition,[id number]. Hemostatic Gelfoam Plus Spng [id number] - [id number] Implanted:Qty : 1 on 04/25/2016 by Jeimy Cruz MD at [facility] Hemostatic N/A: Spine Cervical Anterior FIGUEROA- BIOSCIENCE [id number] 10/09/2017 [id number] / / [id number] Plate Aviator 2lvl 34mm [id number] - Ssterilized April 22, 2016 Implanted:Qty : 1 on 04/25/2016 by Jeimy Cruz MD at [facility] Plate N/A: Spine Cervical Anterior GILL- SPINE [id number] / STERILIZE D APRIL 22, 2016 / LOAD: [address] 4.0x14mm [id number] - Ssterilized April 22, 2016 Implanted:Qty : 6 on 04/25/2016 by Jeimy Cruz MD at [facility] Screw N/A: Spine Cervical Anterior GILL- SPINE [id number] / STERILIZE D APRIL 22, 2016 / LOAD: 2 6 Sealant Floseal W/ Adptr 10ml [id number] - [id number] Implanted:Qty : 1 on 04/25/2016 by Jeimy Cruz MD at [facility] Sealant N/A: Spine Cervical Anterior FIGUEROA- BIOSCIENCE [id number] 08/09/2017 [id number] / / [id number] Sealant Floseal W/ Apdtr 5ml [id number] - [id number] Implanted:Qty : 1 on 04/25/2016 by Jeimy Cruz MD at [facility] Sealant N/A: Spine Cervical Anterior FIGUEROA- BIOSCIENCE [id number] 08/09/2017 [id number] / / [id number] Fiberoptic Wire To Lt Bicep Insurance BLUE ACCESS CHOICE Advance Directives For more information, please contact: [phone] * Full Code (Latest Code Status on File) Date Activated Date Inactivated Comments 04/25/2016 4:56 PM 04/26/2016 3:22 PM * Full Code Date Activated Date Inactivated Comments 04/25/2016 10:56 AM 04/25/2016 4:56 PM Care Teams Advanced Practice Psychiatric Nurse Relationship Specialty Start Date End Date Erick Garcia MD PCP - General Internal Medicine 04/15/16
== END 2024-10-23 14:04 | disposition home or self-care (01) ==
PROVIDERS: PCP Emergency Medicine; Visit Provider Nurse Practitioner Family
DX: R10.9 Unspecified abdominal pain (principal); R19.7 Diarrhea, unspecified
CPT/HCPCS: 74018